=== PATIENT | male | born 1995 | race Two or more races ===

== ENCOUNTER 2020-06-28 12:31 | Emergency (ER) | payer OTHER ==
[~2020-06-28] VITALS: Ht 172.7 cm; Wt 74.8 kg
== END 2020-06-28 15:01 | disposition home or self-care (01) ==
LOC: ER 12:31
DX: S00.11XA Contusion of right eyelid and periocular area, initial encounter (principal); W22.8XXA Striking against or struck by other objects, initial encounter; Y93.89 Activity, other specified; Y92.89 Other specified places as the place of occurrence of the external cause; Y99.8 Other external cause status